=== PATIENT | male | born 1975 | race African-American/Black ===

== ENCOUNTER 2016-10-07 16:52 | Emergency (ER) | payer OTHER ==
[~2016-10-07] VITALS: Ht 160 cm; Wt 61.4 kg
[~2016-10-07 16:52] MED LIST: NKDA; NO HOME MEDICATIONS; NORCO 325 MG-7.1 TAB PO
[2016-10-07 16:53] VITALS: BP 155/93; TEMP 98.6
[2016-10-07 18:23] VITALS: PULSE 68
== END 2016-10-07 18:24 | disposition home or self-care (01) ==
LOC: COL.ER 16:52
DX: S53.401A Unspecified sprain of right elbow, initial encounter (principal); W01.198A Fall on same level from slipping, tripping and stumbling with subsequent striking against other object, initial encounter

== ENCOUNTER 2018-09-09 00:30 | Emergency (ER) | payer BC ==
[~2018-09-09] VITALS: Ht 160 cm; Wt 61.4 kg
[2018-09-09 00:34] VITALS: BP 133/77; TEMP 97
[2018-09-09] MEDS ORDERED: NORCO 325 MG-51 TAB PO (01:09)
[2018-09-09 01:40] VITALS: PULSE 67
== END 2018-09-09 01:40 | disposition home or self-care (01) ==
LOC: COL.ER 00:30
DX: S86.011A Strain of right Achilles tendon, initial encounter (principal); X50.1XXA Overexertion from prolonged static or awkward postures, initial encounter; Y92.830 Public park as the place of occurrence of the external cause; Y93.68 Activity, volleyball (beach) (court)
CPT/HCPCS: Q4045

== ENCOUNTER → 2018-11-08 | Outpatient (CLI) | payer BC ==
[~2018-11-08] MED LIST changes: +NORCO 325 MG-51 TAB PO
== END ==
LOC: COL.VAS 08:52
DX: M79.661 Pain in right lower leg (principal); Z98.890 Other specified postprocedural states